=== PATIENT | male | born 1985 | race Caucasian/White ===

== ENCOUNTER 2016-10-16 15:45 | Emergency (ER) | payer SELFPAY ==
[2016-10-16] MEDS ORDERED: ONDANSETRON HCL INJ/PF 4 MG/2 ML SDV IV ONE (15:59)
[2016-10-16] MEDS ORDERED: PROCHLORPERAZINE EDISYLATE INJ 10 MG/2 ML VIAL IV ONE (16:00)
[2016-10-16] MEDS ORDERED: DIPHENHYDRAMINE HCL 50 MG/ML VIAL IV ONE ×2 (16:00→17:03)
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
[2016-10-16 16:23] LABS: HEMATOCRIT 44.3 % (37.9-51.0); HGB HCT DIFFERENCE 0.7; MEAN CORPUSCULAR HGB CONC 33.8 g/dL (32.0-36.0); MEAN CORPUSCULAR VOLUME 89 fl (80-97); RED BLOOD COUNT 4.98 10^6/uL (4.35-5.55); WHITE BLOOD COUNT 7.4 10^3/uL (4.0-10.5)
[2016-10-16 16:31] LABS: PROTHROMBIN TIME 11.9 SEC (11.4-15.4)
[2016-10-16 16:32] LABS: PARTIAL THROMBOPLASTIN TIME 28.1 SEC (23.5-35.8)
[2016-10-16] MEDS ORDERED: NORMAL SALINE 1000 ML 1,000 ML IV PRN (16:33)
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
[2016-10-16 16:43] LABS: ALANINE AMINOTRANSFERASE 67 U/L (21-72); ALBUMIN 4.2 g/dL (3.5-5.0); ALKALINE PHOSPHATASE 106 U/L (38-126); ANION GAP 12 (5-19); ASPARTATE AMINO TRANSFERASE 32 U/L (17-59); BILIRUBIN,DIRECT 0.3 mg/dL (0.0-0.4); BILIRUBIN,TOTAL 0.5 mg/dL (0.2-1.3); BLOOD UREA NITROGEN 17 mg/dL (7-20); CALCIUM 9.4 mg/dL (8.4-10.2); CARBON DIOXIDE 28 mmol/L (22-30); CHLORIDE 100 mmol/L (98-107); CREATININE RESULT 0.95 mg/dL (0.52-1.25); GLUCOSE 101 mg/dL (75-110); POTASSIUM 4.1 mmol/L (3.6-5.0); SODIUM 139.6 mmol/L (137-145); TOTAL PROTEIN 7.6 g/dL (6.3-8.2)
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
[2016-10-16] MEDS ORDERED: MORPHINE SULFATE 10 MG/ML INJ IV PRN (17:54)
[2016-10-16 19:28] VITALS: BP 135/93
== END 2016-10-16 18:53 | disposition home or self-care (01) ==
LOC: ER 15:45
DX: R51 Headache (principal); H53.149 Visual discomfort, unspecified; I10 Essential (primary) hypertension; F17.210 Nicotine dependence, cigarettes, uncomplicated; Z18.89 Other specified retained foreign body fragments
CPT/HCPCS: 99284; 96361; 96374; 96375; 36415; 85027; 85610; 85730; 80053; 70496; J1200; J2270; J0780; J2405; J7030